=== PATIENT | female | born 1960 | race Caucasian/White ===

== ENCOUNTER 2017-06-09 18:55 | Observation (INO) | payer BC ==
[~2017-06-09] VITALS: Ht 160 cm; Wt 69.8 kg
[2017-06-09 19:25] LABS: MCHC 33.8 G/DL (30.0-36.0); MCV 91.7 FL (83-99); PLATELET COUNT 248 K/uL (156-360); RBC DIS.WIDTH-CV 11.9 % (11.8-14.6); RBC DIS.WIDTH-SD 39.8 % (39-53); RED BLOOD COUNT 4.36 M/uL (3.80-5.20); WHITE BLOOD COUNT 6.7 K/uL (4.1-10.2)
[2017-06-09 19:33] LABS: CHLORIDE 107 mEq/L (99-109); SODIUM 139 mEq/L (136-147)
[2017-06-09 19:35] LABS: GLUCOSE 112 mg/dL (70-99)
[2017-06-09 19:36] LABS: ANION GAP 7 MEQ/L (2-14)
[2017-06-09 19:39] LABS: GFR ESTIMATE (CALCULATED) 41 mL/min/
[2017-06-09 19:40] LABS: UREA NITROGEN (BUN) 9 mg/dL (9-23)
[2017-06-09 19:48] LABS: TROP-I INTERPRETATION NEGATIVE; TROPONIN-I < 0.01 ng/mL (0.0-0.30)
[2017-06-09 21:12] LABS: D-DIMER ELISA < 150.00 ng/mLDDU (<230)
[2017-06-09] MEDS ORDERED: PROAIR HFA8.5 GM IH (22:18)
[2017-06-09] MEDS ORDERED: LEVOTHYROXINE100 MCG PO (22:18)
[2017-06-09] MEDS ORDERED: LOSARTAN POTASS50 MG PO (22:20)
[2017-06-09] MEDS ORDERED: OMEPRAZOLE20 MG PO (22:20)
[2017-06-09] MEDS ORDERED: PREMARIN1.25 MG PO (22:21)
[2017-06-10 01:42] VITALS: BP 147/76
[2017-06-10 03:46] VITALS: BP 135/80
[2017-06-10 07:18] LABS: TROP-I INTERPRETATION NEGATIVE; TROPONIN-I < 0.01 ng/mL (0.0-0.30)
[2017-06-10 08:02] VITALS: BP 141/75
[2017-06-10 09:00] LABS: ANION GAP 9 MEQ/L (2-14); CHLORIDE 104 MEQ/L (99-109); GFR ESTIMATE (CALCULATED) > 59 mL/min/; GLUCOSE 98 mg/dL (70-99); POTASSIUM 3.8 MEQ/L (3.7-5.4); SAMPLE HEMOLYSIS CHECK 0; SAMPLE ICTERIC CHECK 0; SAMPLE LIPEMIA CHECK 0; SODIUM 137 MEQ/L (136-147); UREA NITROGEN (BUN) 9 mg/dL (9-23)
[2017-06-10] MEDS ORDERED: AMLODIPINE BESY10 MG PO (10:42)
[2017-06-10] MEDS ORDERED: HYDROCHLOROTHIA25 MG PO (11:53)
[2017-06-10 11:59] VITALS: BP 158/80
[2017-06-10 13:02] LABS: TROP-I INTERPRETATION NEGATIVE; TROPONIN-I < 0.01 ng/mL (0.0-0.30)
[2017-06-10] MEDS ORDERED: HYDROCHLOROTH12.5 M3 PO (13:23)
== END 2017-06-10 15:28 | disposition home or self-care (01) ==
LOC: EME 18:55 → EDOF 22:59 → 5SOUTH 22:59 → ENRESERV 23:05 → EDOF 06-10 01:14 → 5SOUTH 06-10 01:15
PROVIDERS: Hospitalist; Physician Assistant Medical
DX: I16.0 Hypertensive urgency (principal); I10 Essential (primary) hypertension; R51 Headache; R42 Dizziness and giddiness; R06.02 Shortness of breath; Z87.891 Personal history of nicotine dependence; M79.602 Pain in left arm; N17.9 Acute kidney failure, unspecified; Z88.0 Allergy status to penicillin
CPT/HCPCS: 71020; 80048; 81003; 84484; 85027; 85379; 93005; 99281; 99285; G0378; J1650; J7030

== ENCOUNTER 2017-11-28 07:40 | Emergency (ER) | payer BC ==
[~2017-11-28] VITALS: Ht 160 cm; Wt 68.4 kg
[~2017-11-28 07:40] MED LIST: AMLODIPINE BESY10 MG PO; HYDROCHLOROTH12.5 M3 PO; HYDROCHLOROTHIA25 MG PO; LEVOTHYROXINE100 MCG PO; LOSARTAN POTASS50 MG PO; OMEPRAZOLE20 MG PO; PREMARIN1.25 MG PO; PROAIR HFA8.5 GM IH
[2017-11-28 08:07] LABS: HEMATOCRIT 37.3 % (36.0-46.0); HEMOGLOBIN 13.1 G/DL (11.9-15.5); MCH 31.6 PG (29.0-34.0); MCHC 35.1 G/DL (30.0-36.0); MCV 89.9 FL (83-99); PLATELET COUNT 218 K/uL (156-360); RBC DIS.WIDTH-CV 12.1 % (11.8-14.6); RBC DIS.WIDTH-SD 39.8 % (39-53); RED BLOOD COUNT 4.15 M/uL (3.80-5.20); WHITE BLOOD COUNT 7.9 K/uL (4.1-10.2)
[2017-11-28 08:19] LABS: ALBUMIN 3.8 g/dL (3.2-4.8); CHLORIDE 101 mEq/L (99-109); POTASSIUM 3.5 mEq/L (3.7-5.4); SODIUM 136 mEq/L (136-147)
[2017-11-28 08:22] LABS: GLUCOSE 156 mg/dL (70-99); TOTAL PROTEIN 6.4 g/dL (6.4-8.3)
[2017-11-28 08:24] LABS: TOTAL BILIRUBIN 0.5 mg/dL (0.0-1.0)
[2017-11-28 08:25] LABS: ALKALINE PHOSPHATASE 64 IU/L (3-129); CREATININE 0.8 mg/dL (0.6-1.3); GFR ESTIMATE (CALCULATED) > 59 mL/min/
[2017-11-28 08:26] LABS: UREA NITROGEN (BUN) 6 mg/dL (9-23)
[2017-11-28 08:27] LABS: AST (GOT) 14 IU/L (2-34)
[2017-11-28 08:28] LABS: ALT (GPT) 8 IU/L (3-49)
[2017-11-28 08:29] LABS: TROP-I INTERPRETATION NEGATIVE; TROPONIN-I < 0.01 ng/mL (0.0-0.30)
[2017-11-28 08:36] LABS: QUANTITATIVE HCG < 4.0 MIU/ML
[2017-11-28 09:11] LABS: APPEARANCE SL.HAZY ((CLEAR)); BILIRUBIN NEGATIVE; BLOOD NEGATIVE; COLOR YELLOW ((YELLOW)); GLUCOSE (STRIP) 50; KETONES NEGATIVE; LEUKOCYTES NEGATIVE; NITRITE NEGATIVE; PROTEIN (STRIP) NEGATIVE; SPECIFIC GRAVITY 1.015 (1.000-1.030)
[2017-11-28 09:27] LABS: BACTERIA RARE /HPF; EPITHELIAL CELLS RARE /HPF; HYALINE CASTS 0-5 /LPF; MUCUS TRACE /LPF; RED BLOOD CELLS NONE SEEN /HPF (0-5); UCUL ADDED? NO; WHITE BLOOD CELLS 0-5 /HPF (0-5)
[2017-11-28 11:39] LABS: TROP-I INTERPRETATION NEGATIVE; TROPONIN-I < 0.01 ng/mL (0.0-0.30)
[2017-11-28 12:05] LABS: LIPASE 11 U/L (1.0-51.0)
[2017-11-28 12:16] VITALS: BP 115/59
== END 2017-11-28 12:18 | disposition home or self-care (01) ==
LOC: EME 07:40
PROVIDERS: Physician Assistant Medical
DX: R55 Syncope and collapse (principal); K80.20 Calculus of gallbladder without cholecystitis without obstruction; M51.36 Other intervertebral disc degeneration, lumbar region; M48.061 Spinal stenosis, lumbar region without neurogenic claudication; I10 Essential (primary) hypertension; Z88.0 Allergy status to penicillin; Z87.891 Personal history of nicotine dependence
CPT/HCPCS: 71046; 74177; 80053; 81003; 83690; 84484; 84702; 85027; 93005; 99281; 99285; J7030